=== PATIENT | female | born 1945 | race Asian ===

== ENCOUNTER 2016-12-30 22:59 | Inpatient (IN) | payer OTHER, BC ==
[~2016-12-30] VITALS: Ht 154.9 cm; Wt 70.3 kg
[2016-12-30 23:52] LABS: BASOPHIL % 0.2 % (0-2); PLATELET COUNT 323 x10^3mcL (130-400); RED CELL DISTRIBUTION WIDTH 12.4 % (11.5-14.5)
[2016-12-31 00:09] LABS: ALBUMIN 3.7 g/dL (3.4-5.0); ALKALINE PHOSPHATASE 88 U/L (46-116); ALT/SGPT 13 U/L (14-59); AST/SGOT 26 U/L (15-37); CALCIUM 9.1 mg/dL (8.5-10.1); CARBON DIOXIDE 20.6 mmol/L (21-32); CHLORIDE SERUM 90 mmol/L (98-107); CREATININE SERUM 0.6 mg/dL (0.6-1.0); GFR1 > 60 mL/min; GLUCOSE SERUM 133 mg/dL (74-106); MAGNESIUM 1.6 mg/dL (1.8-2.4); POTASSIUM SERUM 3.6 mmol/L (3.5-5.1); TOTAL PROTEIN, SERUM 7.8 g/dL (6.4-8.2)
[2016-12-31 00:14] LABS: SODIUM SERUM 124 mmol/L (136-145)
[2016-12-31 00:51] LABS: UA SPECIFIC GRAVITY <=1.005 (1.005-1.035); microscopic required? YES; urine erythrocyte 1+ (NEGATIVE)
[2016-12-31 02:58] VITALS: BP 136/69
[2016-12-31 04:04] LABS: PHOSPHOROUS 3.4 mg/dL (2.5-4.9)
[2016-12-31 04:05] LABS: CHOLESTEROL/HDL RATIO 2.4
[2016-12-31 04:12] LABS: T3 TOTAL 0.83 ng/mL
[2016-12-31 04:13] LABS: FREE T4 1.44 ng/dL (0.76-1.46); T4(THYROXINE) 11.5 ug/dL (4.7-13.3)
[2016-12-31] MEDS ORDERED: ALPHAGAN P5 M1 OU (04:46)
[2016-12-31] MEDS ORDERED: TIMOPTIC OCUMET10 ML OS (04:46)
[2016-12-31] MEDS ORDERED: LATANOPROST2.5 ML OU (04:47)
[2016-12-31] MEDS ORDERED: PREDNISOLONE ACE5 ML OD (04:50)
[2016-12-31] MEDS ORDERED: PREDNISOLONE ACE5 ML OS (04:51)
[2016-12-31] MEDS ORDERED: COSOPT OCUMETER10 ML OU (04:52)
[2016-12-31] MEDS ORDERED: ALPHAGAN P5 M1 OS (04:53)
[2016-12-31] MEDS ORDERED: SODIUM CHLORIDE OU (04:54)
[2016-12-31 06:02] VITALS: BP 127/65
[2016-12-31] MEDS ORDERED: DIOVAN160 MG PO (07:38)
[2016-12-31] MEDS ORDERED: NOR5 PO (07:38)
[2016-12-31 09:17] LABS: BASOPHIL % 0.3 % (0-2); PLATELET COUNT 279 x10^3mcL (130-400); RED CELL DISTRIBUTION WIDTH 12.9 % (11.5-14.5)
[2016-12-31 09:41] VITALS: BP 123/66
[2016-12-31 12:47] LABS: CALCIUM 8.3 mg/dL (8.5-10.1); CARBON DIOXIDE 22.6 mmol/L (21-32); CHLORIDE SERUM 108 mmol/L (98-107); CREATININE SERUM 0.6 mg/dL (0.6-1.0); GFR1 > 60 mL/min; GLUCOSE SERUM 97 mg/dL (74-106); POTASSIUM SERUM 4.2 mmol/L (3.5-5.1); SODIUM SERUM 140 mmol/L (136-145)
[2016-12-31 12:54] VITALS: BP 138/62
[2016-12-31 17:40] VITALS: BP 112/55
[2016-12-31 19:10] VITALS: BP 122/58
[2017-01-01 05:38] VITALS: BP 145/65
[2017-01-01 06:28] LABS: CALCIUM 8.3 mg/dL (8.5-10.1); CARBON DIOXIDE 22.1 mmol/L (21-32); CHLORIDE SERUM 108 mmol/L (98-107); CREATININE SERUM 0.6 mg/dL (0.6-1.0); GFR1 > 60 mL/min; GLUCOSE SERUM 79 mg/dL (74-106); MAGNESIUM 2.2 mg/dL (1.8-2.4); POTASSIUM SERUM 3.7 mmol/L (3.5-5.1); SODIUM SERUM 141 mmol/L (136-145)
[2017-01-01 09:15] VITALS: BP 134/69
[2017-01-01] MEDS ORDERED: BACTRIM DS1 TAB PO (14:37)
[2017-01-01] MEDS ORDERED: LAC PO (14:37)
[2017-01-01 14:52] VITALS: BP 134/69
== END 2017-01-01 15:52 | disposition home or self-care (01) | DRG 640 ==
LOC: ED 22:59 → DU 12-31 01:45 → MU 12-31 01:45 → DU 12-31 02:35 → MU 12-31 08:56
PROVIDERS: Emergency Medicine; Family Medicine; ADMIT Family Medicine
DX: E87.1 Hypo-osmolality and hyponatremia (principal); G93.41 Metabolic encephalopathy; N39.0 Urinary tract infection, site not specified; I16.0 Hypertensive urgency; E83.42 Hypomagnesemia; E87.8 Other disorders of electrolyte and fluid balance, not elsewhere classified; H40.9 Unspecified glaucoma; K76.0 Fatty (change of) liver, not elsewhere classified; K80.20 Calculus of gallbladder without cholecystitis without obstruction; I35.1 Nonrheumatic aortic (valve) insufficiency; I34.0 Nonrheumatic mitral (valve) insufficiency; I36.1 Nonrheumatic tricuspid (valve) insufficiency; Z98.890 Other specified postprocedural states
CPT/HCPCS: 83880; 84439; 87804; C9113; J0696; J7030; Q0092; Q9966; Q9967

== ENCOUNTER 2018-01-14 05:26 | Emergency (ER) | payer OTHER, BC ==
[~2018-01-14] VITALS: Ht 162.6 cm; Wt 68.0 kg
[~2018-01-14 05:26] MED LIST: ALPHAGAN P5 M1 OS; ALPHAGAN P5 M1 OU; BACTRIM DS1 TAB PO; COSOPT OCUMETER10 ML OU; DIOVAN160 MG PO; LAC PO; LATANOPROST2.5 ML OU; NOR5 PO; PREDNISOLONE ACE5 ML OD; PREDNISOLONE ACE5 ML OS; SODIUM CHLORIDE OU; TIMOPTIC OCUMET10 ML OS
[2018-01-14 06:45] VITALS: BP 0/0; Ht 162.6 cm; Wt 68.0 kg
== END 2018-01-14 11:07 | disposition expired ==
LOC: ED 05:26
DX: I46.9 Cardiac arrest, cause unspecified (principal); I10 Essential (primary) hypertension
CPT/HCPCS: 83880